=== PATIENT | male | born 1980 | race African-American/Black ===

== ENCOUNTER 2018-10-03 23:38 | Emergency (ER) | payer SELFPAY | END 2018-10-04 00:07 | LOC: NAV ERS 23:38 | DX: F10.129 Alcohol abuse with intoxication, unspecified (principal); V49.9XXA Car occupant (driver) (passenger) injured in unspecified traffic accident, initial encounter | CPT/HCPCS: 99283 ==

== ENCOUNTER 2018-11-13 08:42 | Emergency (ER) | payer SELFPAY ==
[2018-11-13] MEDS ORDERED: Ketorolac Tromethamine 60 MG/2 ML VIAL ONE (09:12)
== END 2018-11-13 09:26 | disposition home or self-care (01) ==
LOC: NAV ERS 08:42
DX: M46.1 Sacroiliitis, not elsewhere classified (principal); F17.210 Nicotine dependence, cigarettes, uncomplicated
CPT/HCPCS: 96372; J1885

== ENCOUNTER 2022-03-13 18:11 | Emergency (ER) | payer SELFPAY ==
[2022-03-13] MEDS ORDERED: Sulfameth/Trimethoprim DS 800-160mg TAB ONE (18:44)
[2022-03-13] MEDS ORDERED: Dicyclomine 20 MG TAB ONE (18:44)
== END 2022-03-13 18:50 | disposition home or self-care (01) ==
LOC: NAV ERS 18:11
DX: R19.7 Diarrhea, unspecified (principal); R11.2 Nausea with vomiting, unspecified; F17.210 Nicotine dependence, cigarettes, uncomplicated
CPT/HCPCS: 99283

== ENCOUNTER 2022-05-18 12:19 | Emergency (ER) | payer SELFPAY, OTHER ==
[~2022-05-18 12:19] MED LIST: Iopamidol 370 76% 100 ML VIAL ONE
[2022-05-18 13:13] LABS: #Basophils 0.2 thou/uL (0.0-0.2); #Eosinphils 0.1 thou/uL (0.0-0.7); #Monocytes 1.3 thou/uL (0.11-0.59); #Neutrophils 11.8 thou/uL (1.40-6.50); %Basophils 1.1 % (0.0-1.0); %Eosinophils 0.4 % (0.0-10.0); %Lymphocytes 13.1 % (21.0-51.0); %Monocytes 8.8 % (0.0-10.0); %Neutrophils 76.7 % (42.0-75.0); Hemoglobin 15.9 g/dL (14.0-18.0); Mean Corpuscular Hemoglobin 27.8 pg (27.0-31.0); Mean Corpuscular Volume 86.8 fL (78.0-98.0); Mean Platelet Volume 7.3 fL (7.4-10.4); Platelet Count 316 thou/uL (130-400); RBC Distribution Width 11.6 % (11.5-14.5); Red Blood Cell (RBC) Count 5.72 mill/uL (4.70-6.10); White Blood Cell (WBC) Count 15.3 thou/uL (4.8-10.8)
[2022-05-18 13:32] LABS: Anion Gap 17 mmol/L (10-20); BUN (Urea Nitrogen) 8 mg/dL (8.9-20.6); Calc. Creatinine Clearance 0 mL/min (70-130); Calcium 10.2 mg/dL (7.8-10.44); Carbon Dioxide 25 mmol/L (22-29); Chloride 101 mmol/L (98-107); Estimated GFR 109; Glucose 193 mg/dL (70-105); Potassium 3.9 mmol/L (3.5-5.1); Sodium 139 mmol/L (136-145)
[2022-05-18] MEDS ORDERED: Morphine 4 MG/ML VIAL ONE ×2 (13:33→15:57)
[2022-05-18] MEDS ORDERED: Ondansetron PF 4 MG/2 ML Vial ONE ×2 (13:33→15:57)
[2022-05-18] MEDS ORDERED: Clindamycin/D5W 900 mg/50 ml Premix Bag ONE (14:49)
[2022-05-18 16:05] LABS: SARS-CoV-2 NAA Rapid Test Not Detected (NotDetected)
[2022-05-18] MEDS ORDERED: methylPREDNISolone Sod Succ 40 MG VIAL ONE (18:11)
[2022-05-18] MEDS ORDERED: Proparacaine 0.5% Opth 15 ML BOT ONE (18:42)
[2022-05-18] MEDS ORDERED: Benzocaine 20% Spray 60 ML CAN ONE (18:44)
[2022-05-18] MEDS ORDERED: Lidocaine 1% (PF) 30 ML VIAL ONE (18:46)
[2022-05-18] MEDS ORDERED: EPINEPHrine 1 MG/ML AMP ONE (18:48)
[2022-05-18] MEDS ORDERED: traMADol HCl 50 MG TAB ONE (19:30)
== END 2022-05-18 19:40 | disposition home or self-care (01) ==
LOC: NAV ERS 12:19
DX: J36 Peritonsillar abscess (principal); R59.0 Localized enlarged lymph nodes; Z20.822 Contact with and (suspected) exposure to COVID-19; F17.210 Nicotine dependence, cigarettes, uncomplicated
CPT/HCPCS: 42700; 70491; 80048; 85025; 87081; 87430; 96365; 96375; 96376; J0171; J2001; J2270; J2405; J2920; J3490; Q9967; U0002